=== PATIENT | male | born 1975 | race Caucasian/White ===

== ENCOUNTER 2018-07-30 12:43 | Outpatient (CLI) | payer OTHER ==
[~2018-07-30] VITALS: Ht 180.3 cm; Wt 58.1 kg
== END 2018-07-30 13:00 | disposition home or self-care (01) ==
LOC: OFIC 805 12:43
DX: H61.23 Impacted cerumen, bilateral (principal); H90.3 Sensorineural hearing loss, bilateral

== ENCOUNTER 2021-06-04 13:01 | Outpatient (CLI) | payer OTHER | END 2021-06-04 13:13 | disposition home or self-care (01) | LOC: SONOGRAMA 13:01 | PROVIDERS: ATTEND General Practice | DX: D17.1 Benign lipomatous neoplasm of skin and subcutaneous tissue of trunk (principal) ==